=== PATIENT | female | born 1980 | race Caucasian/White ===

== ENCOUNTER → 2016-12-03 | Outpatient (CLI) | payer OTHER | LOC: FIMAGING 11:56 | PROVIDERS: ATTEND Obstetrics & Gynecology | DX: O09.522 Supervision of elderly multigravida, second trimester (principal); O99.212 Obesity complicating pregnancy, second trimester; Z68.34 Body mass index [BMI] 34.0-34.9, adult; E03.9 Hypothyroidism, unspecified; Z3A.25 25 weeks gestation of pregnancy ==

== ENCOUNTER 2016-12-21 12:05 | Emergency (ER) | payer OTHER, BC ==
[2016-12-21] MEDS ORDERED: NS 1,000 ML IV ONE (13:21)
--- NOTE | 2016-12-21 13:23 | EDPHY ---
H & P Stated Complaint: GARBER, neck pain, shoulder pain,28 weeks preg, sent from OB, from [facility] Time Seen by Provider: 12/21/16 12:31 HPI/ROS: CHIEF COMPLAINT: Chronic headache HISTORY OF PRESENT ILLNESS: The patient presents the ED with a several year history of chronic intermittent headache. The patient is recently moved to [place] from [place]. She is currently 28 weeks . She has been managed by her OBGYN doctor who prescribed her Manley approximately 1 month ago for similar symptoms. She ran out of that medication. She saw her primary OB provider today who gave the patient a prescription for Flexeril. The patient's headache did not improve she was advised to go to the emergency department. The patient states this is a typical headache for her that she has struggled with for years. For the past 28 weeks of her she has had a headache essentially every day. She denies any acute numbness or weakness. She does have associated neck pain. The patient has had a CT scan of her head in the past for evaluation of headache. REVIEW OF SYSTEMS: A comprehensive 10 point review of systems is otherwise negative aside from elements mentioned in the history of present illness. Source: Patient Exam Limitations: No limitations - Personal History LMP (Females 10-55): Current Tetanus/Diphtheria Vaccine: Yes Current Tetanus Diphtheria and Acellular Pertussis (TDAP): Yes - Medical/Surgical History Hx Asthma: No Hx Chronic Respiratory Disease: No Hx Diabetes: No Hx Cardiac Disease: No Hx Renal Disease: No Hx Cirrhosis: No Hx Alcoholism: No Hx HIV/AIDS: No Hx Splenectomy or Spleen Trauma: No Other PMH: pmh: hypothyroid, Hx GARBER, back pain migraine. psh: eye, dental - Social History Smoking Status: Never smoked - Physical Exam Exam: General Appearance: Alert, no distress Eyes: Pupils equal and round no pallor or injection ENT, Mouth: Mucous membranes moist Respiratory: There are no retractions, lungs are clear to auscultation Cardiovascular: Regular rate and rhythm Gastrointestinal: Gravid uterus Neurological: A&O, normal motor function, normal sensory exam, normal cranial nerves Skin: Warm and dry, no rashes Musculoskeletal: Neck is supple nontender Extremities: symmetrical, full range of motion Constitutional: Initial Vital Signs Temperature (C) 37 C 12/21/16 12:07 Heart Rate 117 H 12/21/16 12:07 Respiratory Rate 16 12/21/16 12:07 Blood Pressure 147/103 H 12/21/16 12:07 O2 Sat (%) 97 12/21/16 12:07 O2 Delivery Mode Room Air Allergies/Adverse Reactions: prochlorperazine [From Compazine] Allergy (Verified 12/21/16 12:11) promethazine [From Phenergan] Allergy (Verified 12/21/16 12:11) Home Medications: Medication Instructions Recorded Cyclobenzaprine 12/21/16 Synthroid 12/21/16 Medical Decision Making - Diagnostics Imaging Results: Imaging Impressions Brain MRI 12/21/16 13:27 Impression: Normal MRI of the brain without contrast. MR Venogram of the Brain History: Severe headaches in a 36-year-old female. Technique: Phase contrast GRE and coronal 2D time of flight MR venogram images of the brain were obtained without contrast. Findings: Cerebral veins and sinuses including the superior sagittal sinus, transverse sinuses, sigmoid sinuses, and internal cerebral veins appear patent without definite evidence of thrombosis. Impression: No evidence of venous sinus thrombosis. Results called and discussed with Steve Moreno M.D. on 12/21/2016 at 15:42 Head MRA 12/21/16 13:28 Impression: Normal MRI of the brain without contrast. MR Venogram of the Brain History: Severe headaches in a 36-year-old female. Technique: Phase contrast GRE and coronal 2D time of flight MR venogram images of the brain were obtained without contrast. Findings: Cerebral veins and sinuses including the superior sagittal sinus, transverse sinuses, sigmoid sinuses, and internal cerebral veins appear patent without definite evidence of thrombosis. Impression: No evidence of venous sinus thrombosis. Results called and discussed with Steve Moreno M.D. on 12/21/2016 at 15:42 ED Course/Re-evaluation: The patient presents to the ED with a chronic intermittent headache. The patient has had the symptoms ongoing for years. She recently moved to [place] from [place]. The patient has been managed to some degree by her OBGYN doctor who has provided her prescriptions for narcotic medications. The patient was given a prescription for Flexeril for recurrent symptoms. When that did not improve her symptoms she was referred to the ED for further evaluation. The patient is noted to be neurologically intact. She has no meningeal symptoms. The patient tells me she has had some workup of the headaches in the past and had a negative CT scan. At some point it was recommended the patient consider Botox injections for treatment of her migraines. Given the patient's current status, an MRI of the brain and MR angiogram were ordered to exclude acute BEVERAGE SPECIALIST abnormality and BEVERAGE SPECIALIST thrombosis. The patient had an IV established. She received 50 mg of IV Benadryl and 4 mg of IV morphine. Consultation was made with our shoe parts caser who has arranged for the patient to be seen in the neurology clinic next Wednesday for further evaluation of her chronic headaches and current state. MRI of the brain demonstrates no evidence of a BEVERAGE SPECIALIST abnormality or venous thrombosis. The patient will be discharged home with a prescription for Manley which is the only medication she has been able to use successfully to date. She does understand the risk benefit of using this medication with this . Differential Diagnosis: Differential diagnosis considered includes intracranial hemorrhage, sagittal vein thrombosis, chronic daily headache, migraine syndrome - Data Points Medications Given: Discontinued Medications Diphenhydramine HCl (Benadryl Injection) 50 mg IVP EDNOW ONE Stop: 12/21/16 13:22 Last Admin: 12/21/16 13:34 Dose: 50 mg Sodium Chloride (Ns) 1,000 mls @ 0 mls/hr IV ONCE ONE; Wide Open PRN Reason: Protocol Stop: 12/21/16 13:22 Last Admin: 12/21/16 13:34 Dose: 1,000 mls Morphine Sulfate (Morphine) 4 mg IVP EDNOW ONE Stop: 12/21/16 14:07 Last Admin: 12/21/16 14:07 Dose: 4 mg Departure - Departure Disposition: Home, Routine, Self-Care Clinical Impression: Chronic headache Condition: Good Instructions: Acute Headache (ED) Additional Instructions: 1. You have an appointment with Dr. Black on Wednesday12/28/16 with a check-in time at 3:30pm (the appointment is at 3:45pm). Their address is [address] [place] [address], [place] [address]. You can contact them at [phone] if you need to reschedule or have any other questions. 2. Manley as needed for headache. Referrals: Jeison Black DO [Medical Doctor] - As per Instructions
--- NOTE | 2016-12-21 15:15 | ASMTCMCOM ---
CM Note CM Note Notes: Requested to assist patient with getting a follow-up appointment with a neurologist. Dr. Black is the on-call neurologist at this time and they are able to see patient this upcoming Wednesday12/28/16 at 3:30pm (check-in time). Patient states this appointment time will work and is provided address and contact information. Date Signed: 12/21/2016 03:14 PM Electronically Signed By:Audra George RN
[2016-12-21 15:28] VITALS: BP 137/90; PULSE 85; RESP 16; TEMP 98.4; O2SAT 97
[2016-12-21] MEDS ORDERED: HYDROCODONE/APAP 5/325 TAB PO ONE ×2 (16:04)
== END 2016-12-21 16:16 | disposition home or self-care (01) ==
DX: O99.89 Other specified diseases and conditions complicating pregnancy, childbirth and the puerperium (principal); R51 Headache; O99.283 Endocrine, nutritional and metabolic diseases complicating pregnancy, third trimester; E86.9 Volume depletion, unspecified; Z3A.28 28 weeks gestation of pregnancy
CPT/HCPCS: 96374; J1200

== ENCOUNTER → 2016-12-31 | Outpatient (CLI) | payer OTHER, BC | LOC: FIMAGING 14:29 | PROVIDERS: ATTEND Obstetrics & Gynecology | DX: O09.523 Supervision of elderly multigravida, third trimester (principal); E03.9 Hypothyroidism, unspecified; G44.209 Tension-type headache, unspecified, not intractable; Z3A.29 29 weeks gestation of pregnancy; R03.0 Elevated blood-pressure reading, without diagnosis of hypertension ==

== ENCOUNTER 2017-02-02 15:40 | Observation (INO) | payer OTHER ==
[2017-02-02 16:23] LABS: % IMMATURE GRANULYOCYTES 0.6 % (0.0-1.1); ABSOLUTE IMMATURE GRANULOCYTES 0.08 10^3/uL (0.00-0.10); ADD DIFF? NO; ADD MORPH? NO; ADD SCAN? NO; ATYPICAL LYMPHOCYTE FLAG 0 (0-99); FRAGMENT RBC FLAG 0 (0-99); HEMATOCRIT 34.6 % (38.0-47.0); HEMOGLOBIN 11.6 g/dL (12.6-16.3); LEFT SHIFT FLG 0 (0-99); LIPEMIA HEMOLYSIS FLAG 80 (0-99); MEAN CELL HEMOGLOBIN 26.2 pg (27.9-34.1); MEAN CELL HEMOGLOBIN CONCENTR. 33.5 g/dL (32.4-36.7); MEAN CELL VOLUME 78.3 fL (81.5-99.8); MEAN PLATELET VOLUME 9.9 fL (8.7-11.7); PLATELET CLUMPS FLAG 0 (0-99); PLATELET COUNT 379 10^3/uL (150-400); RED BLOOD CELL COUNT 4.42 10^6/uL (4.18-5.33); RED CELL DISTRIBUTION WIDTH 15.5 % (11.5-15.2)
[2017-02-02 16:36] LABS: ALANINE AMINOTRANSFERASE 24 IU/L (9-52); ASPARTATE AMINOTRANSFERASE 17 IU/L (14-46); BILIRUBIN,TOTAL 0.2 mg/dL (0.1-1.4); BILIRUBIN-UNCONJUGATED 0.2 mg/dL (0.0-1.1); CREATININE 0.6 mg/dL (0.6-1.0); GLOMERULAR FILTRATION RATE > 60; LACTATE DEHYDROGENASE 431 IU/L (313-618); URIC ACID 4.5 mg/dL (2.5-6.8)
[2017-02-02] MEDS ORDERED: HYDROCODONE/APAP 5/325 TAB PO ONE (17:15)
[2017-02-02] MEDS ORDERED: HYDROCODONE/APAP 5/325 TAB PO PRN (20:33)
[2017-02-02] MEDS: CYCLOBENZAPRINE 10 MG TAB PO PRN (21:18)
--- NOTE | 2017-02-02 21:38 | OBPROG ---
Labor Progress Note Assessment/Plan: Assessment: Plan: Subjective/Intrapartum Course: 02/02/17 21:34 patient still complaining of a migraine. headache feels typical of her usual migraines. has a long history of headaches and migraines primarily due to neck pain. pain is worsened by stress. missed appointment with neurologist. has an appointment with PT next week. has been being monitored with 2 x a week NST and weekly PIH labs. having contractions but palpate very mildly. denies nausea and vomiting. long discussion with patient about management options. patient lives 45 minutes away. blood pressures are stable. PIH labs are stable. and headaches are her typical headache. will just stay over night for observation. Objective: 02/02/17 16:10 02/02/17 16:10 Uric Acid 4.5 mg/dL (2.5-6.8) 02/02/17 16:10 Total Bilirubin 0.2 mg/dL (0.1-1.4) 02/02/17 16:10 Conjugated Bilirubin 0.0 mg/dL (0.0-0.5) 02/02/17 16:10 Unconjugated Bilirubin 0.2 mg/dL (0.0-1.1) 02/02/17 16:10 AST 17 IU/L (14-46) 02/02/17 16:10 ALT 24 IU/L (9-52) 02/02/17 16:10 Lactate Dehydrogenase 431 IU/L (313-618) 02/02/17 16:10 - SVE Dilation (cm): 1 Effacement (%): 0 Station: -3 Membranes: Intact - FHR Assessment Pan FHR Pattern Variability: Moderate FHR Category: 1 - Physical Exam General Appearance: WD/WN, alert, no apparent distress Neck: non-tender, full range of motion Respiratory: chest non-tender, lungs clear, normal breath sounds Cardiac/Chest: normal peripheral pulses, regular rate, rhythm Abdomen: normal bowel sounds, non-tender, other (gravid) Extremities: normal range of motion, non-tender, normal inspection, normal capillary refill Skin: normal color, warm/dry Neuro/Psych: no motor/sensory deficits, alert, normal mood/affect, oriented x 3 Oxytocin Orders Assessment - Pre-Induction/Augmentation Assessment Gestational Age: 34 week(s) and 2 day(s)
--- NOTE | 2017-02-03 01:35 | OBPROG ---
Labor Progress Note Assessment/Plan: Assessment: Plan: Subjective/Intrapartum Course: 02/02/17 21:34 patient still complaining of a migraine. headache feels typical of her usual migraines. has a long history of headaches and migraines primarily due to neck pain. pain is worsened by stress. missed appointment with neurologist. has an appointment with PT next week. has been being monitored with 2 x a week NST and weekly PIH labs. having contractions but palpate very mildly. denies nausea and vomiting. long discussion with patient about management options. patient lives 45 minutes away. blood pressures are stable. PIH labs are stable. and headaches are her typical headache. will just stay over night for observation. 02/03/17 01:23 patient requested additional norco for headache pain. 2 given. patient resting. BP stable. urine p to c ratio .37 cm. feels contractions are much further apart and milder. 02/03/17 01:35 Objective: 02/02/17 16:10 02/02/17 16:10 Uric Acid 4.5 mg/dL (2.5-6.8) 02/02/17 16:10 Total Bilirubin 0.2 mg/dL (0.1-1.4) 02/02/17 16:10 Conjugated Bilirubin 0.0 mg/dL (0.0-0.5) 02/02/17 16:10 Unconjugated Bilirubin 0.2 mg/dL (0.0-1.1) 02/02/17 16:10 AST 17 IU/L (14-46) 02/02/17 16:10 ALT 24 IU/L (9-52) 02/02/17 16:10 Lactate Dehydrogenase 431 IU/L (313-618) 02/02/17 16:10 - SVE Membranes: Intact - AP Antepartum Course: 02/03/17 01:[address] [facility] at 23 weeks from [place]. long history of chronic neck pain and migraines which "only resolve with norco". missed appointment with neurology. evaluated in ER - neg MRI/MRA. elevated blood pressures at 30 weeks - being monitored with 2 x week NST and weekly labs. being followed by [facility]fm Oxytocin Orders Assessment - Pre-Induction/Augmentation Assessment Gestational Age: 34 week(s) and 2 day(s)
--- NOTE | 2017-02-03 04:04 | GHP ---
[f rep st] PREOP HISTORY AND PHYSICAL DATE OF ADMISSION: 02/02/2017 ADMISSION DIAGNOSIS: Intrauterine at 34- weeks gestation with mild preeclampsia, migraine headache consistent with chronic migraines. HISTORY OF PRESENT ILLNESS: Patient is a 36-year-old, 3, para 1-0-1-1 who is 34- w eeks gestation. She is dated by a last menstrual period of 06/06/2016, consistent with a 7 week ultr asound. Patient initiated care in [place] and transferred to [facility] at 23 weeks gestation. The patient's has been complicated by chronic headaches. She has a longs tanding history of headaches, migraines, and neck pain secondary primarily secondary to neck issues. She was evaluated in the emergency room during this and had an MRI and an MRI but missed h er appointment with the neurologist. Patient began having elevated blood pressures at 30 weeks gesta tion. She has been followed with weekly labs and 2 times a week nonstress tests. The patient called the office today complaining of a progressively worsening headache which feels consistent with a rory david. She had a very stressful day yesterday and did not sleep well, which is often a trigger for h er headaches. She came in and evaluated and her blood pressures were 130s over 90s. Patient was tea rful as the headache was persistent and discussion was had for the patient to stay overnight for obse rvation and evaluation. Patient states the headache is very consistent with what she normally experi ences from her musculoskeletal neck headaches. She was given Barry, which did improve her headache a nd a dose of Flexeril and several hours later requested an additional dose of Barry. PH labs were ob tained. She did have an elevated P to C ratio of 0.37. status has been reassuring. She was h aving contractions that were barely palpable by patient and by the nurse and we did examine her cervi x and she was 1 cm dilated long and -2 station. Patient is being observed overnight and will be re-e valuated in the morning for a long-term followup plan. PAST MEDICAL HISTORY: Significant for chronic migraines, hypothyroidism. Severe neck injury. MEDICATIONS: Synthroid, vitamins and Barry as needed. PAST SURGICAL HISTORY: [place] tooth extraction, eye surgery. ALLERGIES: Compazine and Phenergan which both cause muscle tension. SOCIAL HISTORY: Patient is . 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 She denies tob acco, alcohol, or drug use. FAMILY MEDICAL HISTORY: Noncontributory. DISBURSING AGENT HISTORY: Menarche age 14. Periods every 26-27 days, lasting 4 days. She is a 3, par a 1-0-1-1. In 1999, she had a spontaneous vaginal delivery at 37-5/7 weeks of a 5 pound 14 ounce mal e infant, that was in [place]. In 12/2015 she had a spontaneous . Current has been uncomplicated with exception of the chronic headaches and the mild preeclampsia. Patient denies any history of abnormal Pap smears or sexually transmitted diseases. PHYSICAL EXAMINATION: VITAL SIGNS: Stable. The 130-140 over 80-90. Her most recent blood pressure was 102/60. GENERAL APPEARANCE: Alert and oriented x3, but tearful. MUSCULOSKELETAL: Grossly int act. NEUROLOGIC: Grossly intact. NECK: Mobile and supple. HEART: Rate is regular. LUNGS: Martha r to auscultation bilaterally. ABDOMEN: Gravid, nondistended, nontender. EXTREMITIES: Reveal no c penitentiary tenderness or edema. CERVICAL: She was 1 cm dilated, long, -2 station. feels to be vert ex. heart tracing is appropriate for gestational age and she is having contractions that palpa te mild. LABS: Blood type B positive, antibody screen negative. Rubella immune. GBS is unknown. H BsAg negative. HIV negative. Patient's PIH labs: Her hemoglobin is 11.6, hematocrit is 34.6, plate lets are 379. Creatinine is 0.6. Her uric acid is 4.5. Her AST is 17. Her ALT is 24. Her random total protein is 16 and her random creatinine is 43, which makes the P to C ratio of 0.37. ASSESSMENT/PLAN: A 36-year-old 3, para 1-0-1-1 at 34- weeks gestation for mild pre eclampsia with a migraine. Will start 24-hour urine protein just to confirm the P to C ratio and kelvin ssess patient in the morning and if her blood pressures continue to be stable she will be discharged to home. /[id number]/MODL
[2017-02-03] MEDS: CYCLOBENZAPRINE 10 MG TAB PO PRN (06:26)
[2017-02-03 07:22] LABS: % IMMATURE GRANULYOCYTES 0.6 % (0.0-1.1); ABSOLUTE IMMATURE GRANULOCYTES 0.08 10^3/uL (0.00-0.10); ADD DIFF? NO; ADD MORPH? NO; ADD SCAN? NO; ATYPICAL LYMPHOCYTE FLAG 0 (0-99); FRAGMENT RBC FLAG 0 (0-99); HEMOGLOBIN 11.2 g/dL (12.6-16.3); LEFT SHIFT FLG 0 (0-99); LIPEMIA HEMOLYSIS FLAG 80 (0-99); MEAN CELL HEMOGLOBIN CONCENTR. 32.9 g/dL (32.4-36.7); MEAN CELL VOLUME 79.1 fL (81.5-99.8); MEAN PLATELET VOLUME 9.9 fL (8.7-11.7); PLATELET CLUMPS FLAG 0 (0-99); PLATELET COUNT 335 10^3/uL (150-400); RED CELL DISTRIBUTION WIDTH 15.8 % (11.5-15.2)
[2017-02-03 07:42] LABS: ALANINE AMINOTRANSFERASE 22 IU/L (9-52); ASPARTATE AMINOTRANSFERASE 16 IU/L (14-46); BILIRUBIN,TOTAL 0.3 mg/dL (0.1-1.4); BILIRUBIN-UNCONJUGATED 0.3 mg/dL (0.0-1.1); CREATININE 0.5 mg/dL (0.6-1.0); GLOMERULAR FILTRATION RATE > 60; LACTATE DEHYDROGENASE 406 IU/L (313-618); URIC ACID 4.5 mg/dL (2.5-6.8)
--- NOTE | 2017-02-03 09:32 | OBPROG ---
Labor Progress Note Assessment/Plan: Assessment: HD 2 at 34 wks gest with severe GARBER, improved blood pressure and normal labs, slightly elevated proteinuria Plan: repeat labs stable, and B/P normal through noc. Suspect GARBER c/w chronic issue and not a/w severe preeclampsia. will d/c home 02/03/17 09:28 Subjective/Intrapartum Course: 02/02/17 21:34 patient still complaining of a migraine. headache feels typical of her usual migraines. has a long history of headaches and migraines primarily due to neck pain. pain is worsened by stress. missed appointment with neurologist. has an appointment with PT next week. has been being monitored with 2 x a week NST and weekly PIH labs. having contractions but palpate very mildly. denies nausea and vomiting. long discussion with patient about management options. patient lives 45 minutes away. blood pressures are stable. PIH labs are stable. and headaches are her typical headache. will just stay over night for observation. 02/03/17 01:23 patient requested additional norco for headache pain. 2 given. patient resting. BP stable. urine p to c ratio .37 cm. feels contractions are much further apart and milder. 02/03/17 01:35 02/03/17 09:30 pt reports GARBER through noc but felt flexoril helped a bit this am. disc no change and normal labs. B/P normal through noc and baby Cat I tracing - no sign of increasing labor ctxns. I rec pt f/u with massage/acupucture/ etc and rest/hydrate/stool softeners. use flexoril and norco sparingly. f/U next week with MFM and our office or sooner if increased symptoms Objective: 02/03/17 07:10 02/03/17 07:10 Uric Acid 4.5 mg/dL (2.5-6.8) 02/03/17 07:10 Total Bilirubin 0.3 mg/dL (0.1-1.4) 02/03/17 07:10 Conjugated Bilirubin 0.0 mg/dL (0.0-0.5) 02/03/17 07:10 Unconjugated Bilirubin 0.3 mg/dL (0.0-1.1) 02/03/17 07:10 AST 16 IU/L (14-46) 02/03/17 07:10 ALT 22 IU/L (9-52) 02/03/17 07:10 Lactate Dehydrogenase 406 IU/L (313-618) 02/03/17 07:10 - SVE Membranes: Intact - FHR Assessment Pan FHR (bpm): 140 FHR Pattern Variability: Moderate FHR Category: 1 - AP Antepartum Course: 02/03/17 01:25 transfer of care to [facility] at 23 weeks from [place]. long history of chronic neck pain and migraines which "only resolve with norco". missed appointment with neurology. evaluated in ER - neg MRI/MRA. elevated blood pressures at 30 weeks - being monitored with 2 x week NST and weekly labs. being followed by [facility]fm Oxytocin Orders Assessment - Pre-Induction/Augmentation Assessment Gestational Age: 34 week(s) and 2 day(s) ICD10 Worksheet Patient Problems: Problems Problem Status Onset Headache Acute Preeclampsia Acute - ICD10 Problem Qualifiers (1) Headache Qualifiers: Headache type: tension-type Headache chronicity pattern: chronic headache
== END 2017-02-03 10:30 | disposition home or self-care (01) ==
LOC: FLD 15:40
PROVIDERS: ADMIT Obstetrics & Gynecology; ATTEND Obstetrics & Gynecology
DX: O13.3 Gestational [pregnancy-induced] hypertension without significant proteinuria, third trimester (principal); G43.909 Migraine, unspecified, not intractable, without status migrainosus; O99.353 Diseases of the nervous system complicating pregnancy, third trimester; O99.283 Endocrine, nutritional and metabolic diseases complicating pregnancy, third trimester; E03.9 Hypothyroidism, unspecified; O09.523 Supervision of elderly multigravida, third trimester; Z3A.34 34 weeks gestation of pregnancy
CPT/HCPCS: G0378 ×2

== ENCOUNTER 2017-02-05 13:35 | Observation (INO) | payer OTHER ==
[2017-02-05] MEDS ORDERED: TERBUTALINE SULFATE 1 MG/ML VIAL ONE (16:45)
[2017-02-05] MEDS: TERBUTALINE SULFATE 1 MG/ML VIAL SC PRN ×2 (16:52→17:14)
[2017-02-05 17:16] VITALS: PULSE 126
== END 2017-02-05 18:30 | disposition home or self-care (01) ==
LOC: FLD 13:35
PROVIDERS: ADMIT Obstetrics & Gynecology; ATTEND Obstetrics & Gynecology
DX: O60.03 Preterm labor without delivery, third trimester (principal); Z3A.34 34 weeks gestation of pregnancy
CPT/HCPCS: 59025; G0378; J3105

== ENCOUNTER 2017-02-09 13:34 | Observation (INO) | payer BC, OTHER ==
[2017-02-09] MEDS ORDERED: LR 1,000 ML IV SCH (15:30)
[2017-02-09 15:31] LABS: % IMMATURE GRANULYOCYTES 0.5 % (0.0-1.1); ABSOLUTE IMMATURE GRANULOCYTES 0.06 10^3/uL (0.00-0.10); ADD DIFF? NO; ADD MORPH? NO; ADD SCAN? YES; ATYPICAL LYMPHOCYTE FLAG 0 (0-99); FRAGMENT RBC FLAG 20 (0-99); HEMATOCRIT 33.7 % (38.0-47.0); HEMOGLOBIN 11.3 g/dL (12.6-16.3); LEFT SHIFT FLG 10 (0-99); LIPEMIA HEMOLYSIS FLAG 80 (0-99); MEAN CELL HEMOGLOBIN 26.2 pg (27.9-34.1); MEAN CELL HEMOGLOBIN CONCENTR. 33.5 g/dL (32.4-36.7); MEAN PLATELET VOLUME 10.8 fL (8.7-11.7); PLATELET COUNT 314 10^3/uL (150-400); RED BLOOD CELL COUNT 4.32 10^6/uL (4.18-5.33); RED CELL DISTRIBUTION WIDTH 15.5 % (11.5-15.2)
[2017-02-09 15:32] LABS: PLATELET CLUMPS FLAG 300 (0-99)
[2017-02-09 15:46] LABS: ALANINE AMINOTRANSFERASE 26 IU/L (9-52); ASPARTATE AMINOTRANSFERASE 30 IU/L (14-46); BILIRUBIN,TOTAL 0.5 mg/dL (0.1-1.4); BILIRUBIN-CONJUGATED 0.4 mg/dL (0.0-0.5); BILIRUBIN-UNCONJUGATED 0.1 mg/dL (0.0-1.1); CREATININE 0.5 mg/dL (0.6-1.0); GLOMERULAR FILTRATION RATE > 60; LACTATE DEHYDROGENASE 664 IU/L (313-618); URIC ACID 4.5 mg/dL (2.5-6.8)
[2017-02-09 16:00] LABS: SCAN NEGATIVE
[2017-02-09] MEDS ORDERED: TERBUTALINE SULFATE 1 MG/ML VIAL SC ONE (18:39)
--- NOTE | 2017-02-09 20:11 | GHP ---
[f rep st] PREOP HISTORY AND PHYSICAL DATE OF ADMISSION: 02/09/2017 DIAGNOSIS: Intrauterine at 35 and 2/7 weeks' gestation, with contractions. HISTORY OF PRESENT ILLNESS: Carisa is a 36-year-old 3, para 1-0-1-1, with a last menstrual period of 06/06/2016, and EDC of 03/14/2017, which was set by a first trimester ultrasound. She has been followed closely in this with history of chronic headaches and chronic migraines, has had episodes of elevated blood pressures and 1 episode of elevated proteinuria, possible preeclampsi a, also hypothyroidism, and advanced maternal age. She was evaluated by Dr. Nuha Garcia [facility], today for her scheduled followup growth ultrasound, and was found to have be having painful contractions, c oncern for labor. She was sent to Labor and Delivery for evaluation. Currently she reports a mild headache. No scotoma or right upper quadrant pain, or any signs or symptoms of preeclampsia. She has had lower back pain, pelvic pain, and increased contractions, increasing over the course of the day, having episodes of contractions every 2 to 3 minutes. On evaluation, heart tones are 140s, reactive, moderate variability, category 1, she is katy every 2 to 3 minutes. Cervical exam is closed, long, 50% and soft and intact, and she is being observed for labor. The nacho ent has had IV fluids, and we will try 1 dose of subcutaneous terbutaline, to see if we can stop pret erm contractions. There is no evidence of true labor with cervical change at this time. The patient's course has also been complicated by elevated blood pressures. She has had blood pressures of 132/90, and another 131/91; then, she has had a very normal blood pressure at 115/73, 117/77, and 119/66. She has been followed with weekly PIH labs; these were drawn today and they were normal, an d no other evidence of preeclampsia. PAST OBSTETRICAL HISTORY: In May of 1999, she had a spontaneous vaginal delivery of a viable male, 5 pounds 14 ounces, no complications, and in 12/2015, she had an SAB. She has no significant past m edical history, except hypothyroidism. She is on Synthroid 350 mcg daily, and has been followed for growth ultrasounds. SURGICAL HISTORY: Eye surgery, wisdom teeth extraction; nothing significant. ALLERGIES: She is allergic to Compazine, it gives her muscle tension, and Phenergan, as well. LABS: She is A positive, antibody negative, RPR nonreactive, rubella immune, hepatitis negative, HIV negative. 1-hour GTT was normal. PH labs have been followed and were normal. OBJECTIVE: Vital signs are as above. Report of ultrasound with Dr. Garcia showed good growth. Baby is cephalic. Estimated weight of 2653 g, which is 49th percentile. MACEY was 9.9, with a 4.2 cm max vertical pocket. PIH labs were normal. White blood cell count is 12.34, her hemoglobin i s 11.3, hematocrit 33.7, platelets of 314. BUN 5, creatinine 0.5, uric acid 4.5, AST 30, ALT 26, LDH 664. ASSESSMENT AND PLAN: A 35-year-old 3, para 1-0-1-1 at 35 and 2/7 weeks' gestation, with pret erm contractions. No evidence of cervical change or labor; also followed for possible mild p reeclampsia. No evidence of worsening preeclampsia today. We will give her a dose of subcutaneous t erbutaline. Continue IV fluid hydration and observe her contractions closely. /[id number]/MODL
[2017-02-09] MEDS ORDERED: HYDROCODONE/APAP 5/325 TAB PO PRN ×2 (21:10→23:01)
== END 2017-02-10 00:13 | disposition home or self-care (01) ==
LOC: FIMAGING 13:34 → FLD 14:35
PROVIDERS: ADMIT Obstetrics & Gynecology; ATTEND Obstetrics & Gynecology
DX: O60.03 Preterm labor without delivery, third trimester (principal); O14.03 Mild to moderate pre-eclampsia, third trimester; O99.283 Endocrine, nutritional and metabolic diseases complicating pregnancy, third trimester; O99.353 Diseases of the nervous system complicating pregnancy, third trimester; G43.909 Migraine, unspecified, not intractable, without status migrainosus; O09.523 Supervision of elderly multigravida, third trimester; Z3A.35 35 weeks gestation of pregnancy; E03.9 Hypothyroidism, unspecified
CPT/HCPCS: 76816; G0378; J3105

== ENCOUNTER 2017-02-20 19:27 | Observation (INO) | payer OTHER, BC ==
[2017-02-20 19:33] VITALS: RESP 18; TEMP 98.6
--- NOTE | 2017-02-20 19:49 | EDPHY ---
H & P Stated Complaint: fell down starir R ankle pain 37 wks Time Seen by Provider: 02/20/17 19:40 HPI/ROS: CHIEF COMPLAINT: Right ankle pain HISTORY OF PRESENT ILLNESS: 36-year-old female, , currently 37 weeks , arrives via private vehicle complaining of acute right lateral ankle pain after she was walking down 45 stairs, slipped and rolled her ankle. No abdominal trauma. No head injury or trauma. No back pain or trauma. No chest pain or trauma. No straddle injury. No vaginal bleeding or discharge. Able to bear weight albeit with pain. No proximal tibia or fibula or fibular head pain. Primary OBGYN: Dr. Erika Maya REVIEW OF SYSTEMS: A ten point review of systems was performed and is negative with the exception of the items mentioned in the HPI PAST MEDICAL/SURGICAL HISTORY: currently 37 weeks SOCIAL HISTORY: denies alcohol use at time of incident PHYSICAL EXAM 1) GENERAL: Well-developed, well-nourished, alert and oriented. Appears to be in no acute distress. Answering questions appropriately. 2) HEAD: Normocephalic, atraumatic 3) HEENT: Pupils equal, round, reactive to light bilaterally. Negative Horners. Nasopharynx, oropharynx, clear. No deformity or angulation of nose. No septal hematoma. No rhinorrhea. No oral trauma. Ears bilaterally with normal tympanic membranes. No hemotympanum. No fluid or blood in the external auditory canal. No raccoon eyes. No Lopez sign.. 4) NECK: No cervical collar is on. Posterior cervical spine is nontender, no stepoff, no effusion. Full range of motion which does not elicit any midline cervical spine pain, no posterior midline tenderness, no step-off. 5) LUNGS: Clear to auscultation bilaterally, no wheezes, no rhonchi, no retractions. No obvious signs of trauma. No chest wall pain. No flaring, no grunting. Moving symmetrically. No crepitus. 6) HEART: [Regular rate and rhythm, 7) ABDOMEN: Gravid. No ecchymosis. No guarding, no rebound, no focal tenderness, no peritoneal signs, no signs of trauma, no ecchymosis 8) MUSCULOSKELETAL: Right lower extremity: Tender to palpation right lateral malleolus. No 5th metatarsal pain. No fibular head or knee pain or injury. Soft compartments. DP PT pulses present and brisk. Moving all extremities, no focal areas of tenderness, no obvious trauma. 9) BACK: No midline vertebral tenderness, no fluctuance, no step-off, no obvious trauma, no visual or palpable abnormality. 10) SKIN: No laceration. No abrasion DIFFERENTIAL DIAGNOSIS: In no particular include but limited to fracture, sprain, strain, compartment syndrome - Personal History LMP (Females 10-55): Current Tetanus/Diphtheria Vaccine: Unsure Current Tetanus Diphtheria and Acellular Pertussis (TDAP): Unsure - Medical/Surgical History Hx Asthma: No Hx Chronic Respiratory Disease: No Hx Diabetes: No Hx Cardiac Disease: No Hx Renal Disease: No Hx Cirrhosis: No Hx Alcoholism: No Hx HIV/AIDS: No Hx Splenectomy or Spleen Trauma: No Other PMH: pmh: hypothyroid, Hx GARBER, back pain migraine. psh: eye, dental - Social History Smoking Status: Never smoked Constitutional: Initial Vital Signs Temperature (C) 37 C 02/20/17 19:30 Heart Rate 88 02/20/17 19:30 Respiratory Rate 18 02/20/17 19:30 Blood Pressure 147/89 H 02/20/17 19:30 O2 Sat (%) 100 02/20/17 19:30 O2 Delivery Mode Room Air Allergies/Adverse Reactions: prochlorperazine [From Compazine] Allergy (Verified 02/05/17 13:54) promethazine [From Phenergan] Allergy (Verified 02/05/17 13:54) Home Medications: Medication Instructions Recorded Synthroid 250 mcg PO DAILY 12/21/16 Cyclobenzaprine [Flexeril 10 MG 10 mg PO TID PRN #20 tab 02/03/17 (*)] Hydrocodone/APAP 5/325 [[place] 2 tab PO Q4HRS PRN 1 Days #16 tab 02/03/17 5/325 (*)] Vit27&Calcium/Iron/FA 1 each PO DAILY 02/05/17 [ Rx 1 Tablet (RX)] Medical Decision Making - Diagnostics Imaging Results: Imaging Impressions Ankle X-Ray 02/20/17 19:45 Impression: Negative for fracture. Images reviewed myself Procedures: Procedure: Crutches indications for crutch use discussed with patient. Patient fitted for crutches by ER staff. Observed ambulating with crutches. I think the patient has the capacity to safely use crutches. Usual and customary crutch walking precautions provided Procedure: Splint A Ander boot splint was applied by ER missile tracking technician. After application of the splint I returned and re-examined the patient. The splint was adequately immobilizing the joint and distal to the splint the patient's circulation and sensation were intact. Patient shows no signs of compartment syndrome. Was given orthopedic precautions. ED Course/Re-evaluation: Care of patient under supervision of secondary supervising physician Dr Juarez . Will obtain x-ray of the right ankle and patient will then be transferred to the Labor and delivery for monitoring. 8:36 p.m.: Re-evaluation. Discussed her negative imaging results. Discussed limitations of imaging the diagnosis of acute ankle pain. Recommend orthopedic follow-up. She has been placed in [place] boot, crutches, weight-bearing as tolerated, given orthopedic follow-up information. She will go directly from the ER to Labor and delivery for monitoring. Departure - Departure Disposition: Home, Routine, Self-Care Clinical Impression: Right ankle sprain Qualifiers: Encounter type: initial encounter Involved ligament of ankle: unspecified ligament Qualified Code(s): S93.401A - Sprain of unspecified ligament of right ankle, initial encounter Condition: Good Instructions: Ankle Sprain (ED) Additional Instructions: Return to the ER immediately if you experience discoloration, have worsening pain, numbness, tingling, or any other symptoms that concern you. If you received x-rays in the emergency department today, be advised, that ligamentous , tendon, muscular, and other non-bony injury cannot be fully ruled out. Try to keep your affected extremity elevated above the level of your chest, and keep cold packs on the affected area, for the next 48 hours. Referrals: Javier Still MD [Medical Doctor] - 2-3 days, call for appt.
[2017-02-20 20:39] VITALS: BP 131/81; PULSE 73; O2SAT 99
--- NOTE | 2017-02-20 21:30 | OBPROG ---
Labor Progress Note Assessment/Plan: Assessment:cat 1 fhr pain of an 8 irregular contractions requesting medication for pain relief denies leaking and bleeding Plan:consult dr. ness garcía on POC 4h monitoring, pain relief for leg pain after fall. Hydration to assist with irregular contractions 02/20/17 21:26 Subjective/Intrapartum Course: 02/20/17 21:24 Fell at 1820 to leg and down three flights of stairs. States pain an 8 right foot, ankle, up leg to hip. Feeling occasional contractions. Denies leaking and bleeding. states feeling movement Objective: Temp Pulse Resp BP Pulse Ox 37 C 73 18 131/81 H 99 02/20/17 19:30 02/20/17 20:37 02/20/17 20:37 02/20/17 20:37 02/20/17 20:37 - Contraction Pattern Assessment Current Contraction Pattern: Irregular - FHR Assessment Pan FHR (bpm): 135 FHR Pattern Variability: Moderate FHR Category: 1 - Physical Exam General Appearance: WD/WN, alert, no apparent distress Respiratory: chest non-tender, lungs clear, normal breath sounds Cardiac/Chest: regular rate, rhythm Abdomen: normal bowel sounds Extremities: normal range of motion, Song's sign (negative hoens sign bilaterally) DTR- Lower Extremities: Knee (L): 1+ (no clonus) Skin: normal color, warm/dry Neuro/Psych: no motor/sensory deficits, alert, normal mood/affect, oriented x 3 Oxytocin Orders Assessment - Pre-Induction/Augmentation Assessment Gestational Age: 36 week(s) and 6 day(s) ICD10 Worksheet Patient Problems: Problems Problem Status Onset Right ankle sprain Acute Headache Acute Preeclampsia Acute
[2017-02-20] MEDS: HYDROCODONE/APAP 5/325 TAB PO PRN (21:35)
--- NOTE | 2017-02-20 22:16 | GHP ---
[f rep st] HISTORY AND PHYSICAL DATE OF ADMISSION: 02/20/2017 HISTORY OF PRESENT ILLNESS: The patient is a 36-year-old, 3, para 1, with an EDC of 03/14/20 17 who comes to labor and delivery at 8:54 for monitoring after being medically cleared in the ER for a fall where she fell to her leg, on her bottom, and then down 3 stairs. She denies any abdominal t rauma. She states brownish discharge after an exam 2 days ago in the office. Denies [place] bleeding. States feeling occasional contractions. States feeling positive movement. States pain is a 9 in her right leg, which is the leg that she fell on, and 9 in her abdomen (not labor related). The patient has been routinely seen with [facility] with transfer of care at 23-4/7 weeks. MEDICAL HISTORY: Thyroid dysfunction, taking 250 mcg of levothyroxine p.o. daily, and migraine heada ches with aura. The patient has a history of depression. MAJOR ACCIDENTS: Severe neck injury. SURGICAL HISTORY: Right eye surgery and wisdom teeth extraction. SOCIAL HISTORY: She denies smoking, alcohol use, and drug use. GYNECOLOGICAL HISTORY: Thirteen years for starting menarche, 26 to 27-day interval, 4-day length. L ast menstrual period was 06/06/2016. Certain dates. test that was positive on 07/04/2016. PREVIOUS HISTORY: On 06/07/1999, 5 pounds 14 ounces, 37-5/7 weeks, 13 hours of labor vagin ally with an epidural. On 01/02/2016, SAB, 0 growth after 6 weeks. This is #3 . ALLERGIES: Patient is allergic to Compazine and Phenergan. MEDICATIONS: Synthroid and vitamin. LABS: Patient is A positive and antibody negative. RPR is nonreactive. Rubella is immune. Hepatit is is negative. HIV is negative. Trio screen is negative. Gonorrhea and chlamydia are negative. U rine culture is negative. Previously, patient was taking tramadol. She has also been taking Fiorice t and [place] to assist with headache. She has been routinely seen in [facility] for elevated blood pressure and growth, seeing the neurologist for migraine headaches, and weekly PIH labs. We will do PIH labs today. Elevated blood pressure x1; 131/78 was the second blood pressure. PHYSICAL ASSESSMENT: Patient is awake, alert, and oriented x3. Lungs are clear bilaterally. Bowel sounds are positive in all 4 quadrants. DTRs are 1+ in the left leg. Right leg was not assessed as she is wearing a soft cast. The patient states pain is an 8. We will give [place] for pain relief. Category-1 heart rate. PLAN OF CARE: Consult Dr. Minerva Grier. We will monitor continuously for 4 hours after the fall. /[id number]/MODL
[2017-02-20 22:18] LABS: % IMMATURE GRANULYOCYTES 0.9 % (0.0-1.1); ABSOLUTE IMMATURE GRANULOCYTES 0.13 10^3/uL (0.00-0.10); ADD DIFF? NO; ADD MORPH? NO; ADD SCAN? NO; ATYPICAL LYMPHOCYTE FLAG 0 (0-99); FRAGMENT RBC FLAG 0 (0-99); HEMATOCRIT 34.6 % (38.0-47.0); HEMOGLOBIN 11.4 g/dL (12.6-16.3); LEFT SHIFT FLG 0 (0-99); LIPEMIA HEMOLYSIS FLAG 80 (0-99); MEAN CELL HEMOGLOBIN 25.7 pg (27.9-34.1); MEAN CELL HEMOGLOBIN CONCENTR. 32.9 g/dL (32.4-36.7); MEAN CELL VOLUME 78.1 fL (81.5-99.8); MEAN PLATELET VOLUME 10.1 fL (8.7-11.7); PLATELET CLUMPS FLAG 0 (0-99); PLATELET COUNT 384 10^3/uL (150-400); RED BLOOD CELL COUNT 4.43 10^6/uL (4.18-5.33); RED CELL DISTRIBUTION WIDTH 15.9 % (11.5-15.2)
[2017-02-20 22:49] LABS: ALANINE AMINOTRANSFERASE 21 IU/L (9-52); ASPARTATE AMINOTRANSFERASE 19 IU/L (14-46); BILIRUBIN,TOTAL 0.3 mg/dL (0.1-1.4); BILIRUBIN-CONJUGATED 0.2 mg/dL (0.0-0.5); BILIRUBIN-UNCONJUGATED 0.1 mg/dL (0.0-1.1); CREATININE 0.6 mg/dL (0.6-1.0); GLOMERULAR FILTRATION RATE > 60; LACTATE DEHYDROGENASE 495 IU/L (313-618); URIC ACID 5.2 mg/dL (2.5-6.8)
[2017-02-21] MEDS: HYDROCODONE/APAP 5/325 TAB PO PRN (01:03)
--- NOTE | 2017-02-21 01:05 | OBPROG ---
Labor Progress Note Assessment/Plan: Assessment:cat 1 fhr pain 4-5 irregular contractions/ denies pain from the contractions requesting medication for pain relief denies leaking and bleeding feeling positive movement Plan:Discharge to home with instructions for fu on wednesday in the office return sooner for regular contractions bleeding and leaking 02/20/17 21:26 02/21/17 01:05 Subjective/Intrapartum Course: 02/20/17 21:24 Fell at 1820 to leg and down three flights of stairs. States pain an 8 right foot, ankle, up leg to hip. Feeling occasional contractions. Denies leaking and bleeding. states feeling movement 02/21/17 01:01 denies feeling contractions. Continues to feel pain in the right leg. Will medicate again before discharge to home with norco 2 tabs. Objective: 02/20/17 22:10 02/20/17 22:10 Uric Acid 5.2 mg/dL (2.5-6.8) 02/20/17 22:10 Total Bilirubin 0.3 mg/dL (0.1-1.4) 02/20/17 22:10 Conjugated Bilirubin 0.2 mg/dL (0.0-0.5) 02/20/17 22:10 Unconjugated Bilirubin 0.1 mg/dL (0.0-1.1) 02/20/17 22:10 AST 19 IU/L (14-46) 02/20/17 22:10 ALT 21 IU/L (9-52) 02/20/17 22:10 Lactate Dehydrogenase 495 IU/L (313-618) 02/20/17 22:10 Temp Pulse Resp BP Pulse Ox 37 C 73 18 131/81 H 99 02/20/17 19:30 02/20/17 20:37 02/20/17 20:37 02/20/17 20:37 02/20/17 20:37 - Contraction Pattern Assessment Current Contraction Pattern: Irregular Oxytocin Orders Assessment - Pre-Induction/Augmentation Assessment Gestational Age: 36 week(s) and 6 day(s) ICD10 Worksheet Patient Problems: Problems Problem Status Onset Right ankle sprain Acute Headache Acute Preeclampsia Acute
== END 2017-02-21 01:18 | disposition home or self-care (01) ==
LOC: FLD 20:50
PROVIDERS: ADMIT Advanced Practice Midwife; ATTEND Advanced Practice Midwife
DX: O9A.213 Injury, poisoning and certain other consequences of external causes complicating pregnancy, third trimester (principal); S93.401A Sprain of unspecified ligament of right ankle, initial encounter; W18.49XA Other slipping, tripping and stumbling without falling, initial encounter; Y99.8 Other external cause status; Y93.01 Activity, walking, marching and hiking; Z3A.37 37 weeks gestation of pregnancy; E07.9 Disorder of thyroid, unspecified
CPT/HCPCS: 73610; G0378; L4386

== ENCOUNTER 2017-02-23 06:00 | Inpatient (IN) | payer OTHER, BC ==
[2017-02-23] MEDS ORDERED: EPSOM SALT 454 GM TP PRN (07:05)
[2017-02-23] MEDS ORDERED: TERBUTALINE SULFATE 1 MG/ML VIAL IV PRN (07:05)
[2017-02-23] MEDS ORDERED: OXYTOCIN 20 UNIT in LR 1,000 ML IV PRN (07:05)
[2017-02-23] MEDS ORDERED: LR 1,000 ML IV PRN (07:05)
[2017-02-23] MEDS ORDERED: OLIVE OIL 118 ML BTL MISC PRN (07:05)
[2017-02-23] MEDS ORDERED: OXYTOCIN 30 UNIT in NS 500 ML IV SCH (07:15)
--- NOTE | 2017-02-23 07:53 | OBPROG ---
Labor Progress Note Assessment/Plan: Assessment: cat 1 fhr denies regular contractions feeling irregular cramping elevated bp pih labs exam 3-/-2 Plan:pitocin per protocol 02/23/17 07:51 Subjective/Intrapartum Course: 02/23/17 07:50 Denies pain at this time. Doing well . Continues to have pain with her right leg after a recent fall - SVE Dilation (cm): 3, 4 Effacement (%): 50 Station: -2 Membranes: Intact - Contraction Pattern Assessment Current Contraction Pattern: Irregular - FHR Assessment Pan FHR (bpm): 135 FHR Pattern Variability: Moderate FHR Category: 1 - Physical Exam General Appearance: WD/WN, alert, no apparent distress Respiratory: chest non-tender, lungs clear, normal breath sounds Cardiac/Chest: regular rate, rhythm Abdomen: normal bowel sounds Extremities: normal range of motion, Song's sign (negative bilaterally) DTR- Lower Extremities: Knee (L): 1+ (no clonus) Skin: normal color, warm/dry Neuro/Psych: no motor/sensory deficits, alert, normal mood/affect ICD10 Worksheet Patient Problems: Problems Problem Status Onset Right ankle sprain Acute Preeclampsia Acute
[2017-02-23 08:12] LABS: % IMMATURE GRANULYOCYTES 0.8 % (0.0-1.1); ABSOLUTE IMMATURE GRANULOCYTES 0.12 10^3/uL (0.00-0.10); ADD DIFF? NO; ADD MORPH? NO; ADD SCAN? NO; ATYPICAL LYMPHOCYTE FLAG 0 (0-99); FRAGMENT RBC FLAG 0 (0-99); HEMATOCRIT 31.5 % (38.0-47.0); HEMOGLOBIN 10.5 g/dL (12.6-16.3); LEFT SHIFT FLG 0 (0-99); LIPEMIA HEMOLYSIS FLAG 80 (0-99); MEAN CELL HEMOGLOBIN 25.7 pg (27.9-34.1); MEAN CELL HEMOGLOBIN CONCENTR. 33.3 g/dL (32.4-36.7); MEAN CELL VOLUME 77.2 fL (81.5-99.8); MEAN PLATELET VOLUME 10.7 fL (8.7-11.7); PLATELET CLUMPS FLAG 0 (0-99); PLATELET COUNT 350 10^3/uL (150-400); RED BLOOD CELL COUNT 4.08 10^6/uL (4.18-5.33); RED CELL DISTRIBUTION WIDTH 15.9 % (11.5-15.2)
[2017-02-23 08:38] LABS: ALANINE AMINOTRANSFERASE 26 IU/L (9-52); ASPARTATE AMINOTRANSFERASE 21 IU/L (14-46); BILIRUBIN,TOTAL 0.2 mg/dL (0.1-1.4); BILIRUBIN-CONJUGATED 0.1 mg/dL (0.0-0.5); BILIRUBIN-UNCONJUGATED 0.1 mg/dL (0.0-1.1); CREATININE 0.5 mg/dL (0.6-1.0); GLOMERULAR FILTRATION RATE > 60; LACTATE DEHYDROGENASE 484 IU/L (313-618); URIC ACID 5.1 mg/dL (2.5-6.8)
[2017-02-23] MEDS ORDERED: LIDOCAINE 1% 300 MG/30 ML SDV ONE (09:07)
[2017-02-23] MEDS ORDERED: AMMONIA AROMATIC 1 EACH AMP IH ONE (09:08)
[2017-02-23] MEDS ORDERED: MISOPROSTOL 200 MCG TAB ONE (09:08)
[2017-02-23] MEDS ORDERED: OXYTOCIN 10 UNIT/ML VIAL ONE (09:08)
[2017-02-23] MEDS ORDERED: TERBUTALINE SULFATE 1 MG/ML VIAL ONE (09:08)
[2017-02-23] MEDS ORDERED: OLIVE OIL 118 ML BTL ONE (09:08)
[2017-02-23] MEDS ORDERED: fentaNYL 100 MCG/2 ML INJ ONE ×2 (13:35→15:46)
[2017-02-23] MEDS ORDERED: PHENYLEPHRINE HCL 100 MCG/ML SYR ONE (13:35)
[2017-02-23] MEDS ORDERED: BUPIVACAINE 0.25% 30 ML SDV ONE (13:35)
[2017-02-23] MEDS ORDERED: fentaNYL 2MCG/ML/BUP 0.1% RTU 100 ML BAG EP ONE (13:35)
--- NOTE | 2017-02-23 14:45 | OBPROG ---
Labor Progress Note Assessment/Plan: Assessment: IUP at 37+ wks, mild preeclampsia, induction narc use for HAs and sprained ankle Plan: SHARON and unable to monitor baby,m FSE and IUPC placed 02/23/17 14:42 Subjective/Intrapartum Course: 02/23/17 07:50 Denies pain at this time. Doing well . Continues to have pain with her right leg after a recent fall 02/23/17 14:44 Pt more comf with SHARON Objective: 02/23/17 07:50 02/23/17 07:50 Patient ABO/Rh A POSITIVE 02/23/17 07:50 Uric Acid 5.1 mg/dL (2.5-6.8) 02/23/17 07:50 Total Bilirubin 0.2 mg/dL (0.1-1.4) 02/23/17 07:50 Conjugated Bilirubin 0.1 mg/dL (0.0-0.5) 02/23/17 07:50 Unconjugated Bilirubin 0.1 mg/dL (0.0-1.1) 02/23/17 07:50 AST 21 IU/L (14-46) 02/23/17 07:50 ALT 26 IU/L (9-52) 02/23/17 07:50 Lactate Dehydrogenase 484 IU/L (313-618) 02/23/17 07:50 - SVE Dilation (cm): 3 Effacement (%): 80 Station: -1 Membranes: AROM, Intact Amniotic Fluid Color: Clear - Contraction Pattern Assessment Current Contraction Pattern: Regular (q 2-3 on pit 8 mu/min), Irregular - FHR Assessment Pan FHR (bpm): 130 FHR Pattern Variability: Moderate FHR Category: 2 (deep variables after FSE placed, IUPC placed for amnioinfusion) Oxytocin Orders Assessment - Pre-Induction/Augmentation Assessment Gestational Age: 37 week(s) and 2 day(s) ICD10 Worksheet Patient Problems: Problems Problem Status Onset Preeclampsia Acute Right ankle sprain Acute
--- NOTE | 2017-02-23 16:13 | PREANESOB ---
Obstetric Pre-Anesthesia Info - General Info Proposed Procedure: Labor and delivery. : 3 Para: 1 PRAKASH: 03/14/17 Gestational Age: 37 week(s) and 2 day(s) - Info Status: Full Term Monitors: External FHR Baseline (bpm): 130 FHR Pattern: Reassuring - Labor Status Cervical Dilation per last OB SVE: 3 Station per last OB SVE: -1 Amniotic Fluid Color: Clear Pitocin: In Use PIH: Mild Magnesium Sulfate in Use: No Indications for Labor Analgesia: Induction of Labor, Pain Control Labor Epidural: Proposed Anesthesia ROS: Prior general anesthesia and unsuccessful labor epidural. Allergies/Adverse Reactions: Allergy/AdvReac Type Severity Reaction Status Date / Time prochlorperazine Allergy Verified 02/05/17 13:54 [From Compazine] promethazine [From Phenergan] Allergy Verified 02/05/17 13:54 Home Medications: Medication Instructions Recorded Synthroid 250 mcg PO DAILY 12/21/16 Vit27&Calcium/Iron/FA 1 each PO DAILY 02/05/17 [] Hydrocodone/APAP 5/325 [[place] 2 tab PO Q4HRS PRN #20 tab 02/21/17 5/325 (*)] Visit Medications: Generic Name Dose Route Start Last Admin Trade Name Freq PRN Reason Stop Dose Admin Lactated Ringer's 1,000 mls @ 0 mls/hr 02/23/17 07:05 Lr IV 02/24/17 07:04 PRN PRN SEE PROTOCOL CONDITIONS Protocol Per Protocol Oxytocin 20 unit/ Lactated 1,002 mls @ 150 mls/hr 02/23/17 07:05 Ringer's IV PRN PRN Post- bleeding Oxytocin 30 unit/ Sodium 503 mls @ 0 mls/hr 02/23/17 07:15 02/23/17 09:54 Chloride IV 08/22/17 07:14 503 mls CONT YONATHAN Administration Per Protocol Ibuprofen 600 mg 02/23/17 07:05 Motrin PO 08/22/17 07:04 Q6HRS PRN post , inflammation Magnesium Sulfate 454 gm 02/23/17 07:05 Epsom Salt TP 08/22/17 07:04 Q1H PRN perineal discomfort Alton Oil 118 ml 02/23/17 07:05 Sweet Oil MISC 06/10/18 07:04 ONCE PRN perineal massage Terbutaline Sulfate 0.25 mg 02/23/17 07:05 Brethine IV 08/22/17 07:04 ONCE PRN Tachysystole Discontinued Medications Generic Name Dose Route Start Last Admin Trade Name Jeff PRN Reason Stop Dose Admin Ammonia (Aromatic Spirit) Confirm 02/23/17 09:08 Ammonia Aromatic Administered 02/23/17 09:09 Dose 1 each IH .STK-MED ONE Bupivacaine HCl Confirm 02/23/17 13:35 Sensorcaine 0.25% Sdv Administered 02/23/17 13:36 Dose 30 ml .ROUTE .STK-MED ONE Fentanyl Confirm 02/23/17 13:35 Sublimaze Administered 02/23/17 13:36 Dose 100 mcg .ROUTE .STK-MED ONE Fentanyl Confirm 02/23/17 15:46 Sublimaze Administered 02/23/17 15:47 Dose 100 mcg .ROUTE .STK-MED ONE Fentanyl/Bupivacaine HCl Confirm 02/23/17 13:35 Fentanyl/Bupivacaine/Ns 2 Mcg/Ml 0.1% (Premix Administered 02/23/17 13:36 Dose 100 ml EP .STK-MED ONE Lidocaine HCl Confirm 02/23/17 09:07 Lidocaine Hcl 1% Administered 02/23/17 09:08 Dose 300 mg .ROUTE .STK-MED ONE Misoprostol Confirm 02/23/17 09:08 Cytotec Administered 02/23/17 09:09 Dose 1,000 mcg .ROUTE .STK-MED ONE Alton Oil Confirm 02/23/17 09:08 Sweet Oil Administered 02/23/17 09:09 Dose 118 ml .ROUTE .STK-MED ONE Oxytocin Confirm 02/23/17 09:08 Pitocin Administered 02/23/17 09:09 Dose 40 unit .ROUTE .STK-MED ONE Phenylephrine HCl Confirm 02/23/17 13:35 Neosynephrine Administered 02/23/17 13:36 Dose 1,000 mcg .ROUTE .STK-MED ONE Terbutaline Sulfate Confirm 02/23/17 09:08 Brethine Administered 02/23/17 09:09 Dose 1 mg .ROUTE .STK-MED ONE - Anesthesia History Response to Local Anesthetics: Normal Anesthesia & Operative History: Prob w/Prior Anesthesia Family Anesthesia History: Negative - Social History Substance Use/Abuse: Denies - Vital Signs Blood Pressure: 125/81 Heart Rate: 86 Respiratory Rate: 17 Height/Weight (Nursing): Height 172.72 cm Weight 105.687 kg - Focused Exam Neck exam: FROM Mallampati Score: Class 1 Mouth exam: normal dental/mouth exam Pulmonary: no respiratory distress Cardiovascular: regular rate and rhythym Labs: 02/23/17 07:50 02/23/17 07:50 Patient ABO/Rh A POSITIVE 02/23/17 07:50 Uric Acid 5.1 mg/dL (2.5-6.8) 02/23/17 07:50 Total Bilirubin 0.2 mg/dL (0.1-1.4) 02/23/17 07:50 Conjugated Bilirubin 0.1 mg/dL (0.0-0.5) 02/23/17 07:50 Unconjugated Bilirubin 0.1 mg/dL (0.0-1.1) 02/23/17 07:50 AST 21 IU/L (14-46) 02/23/17 07:50 ALT 26 IU/L (9-52) 02/23/17 07:50 Lactate Dehydrogenase 484 IU/L (313-618) 02/23/17 07:50 - Plan Consent Signed and on Chart: Yes Patient/Guardian Understands and Agrees to Plan: Yes Urgent/Emergent Case: Sam velasquez completed preop but documented later for safe timely pt care
--- NOTE | 2017-02-23 16:18 | OBPROG ---
Labor Progress Note Assessment/Plan: Assessment: IUP at 37+ wks, mild preeclampsia, induction narc use for HAs and sprained ankle recurrent lates, improved after amnioinfusion Plan: FSE and IUPC placed, rapid progress and now complete 02/23/17 14:42 02/23/17 16:15 Subjective/Intrapartum Course: 02/23/17 07:50 Denies pain at this time. Doing well . Continues to have pain with her right leg after a recent fall 02/23/17 14:44 Pt more comf with SAHRON 02/23/17 16:16 pt feeling pressure and pushing now, very anxious with concern for FHT decels Objective: 02/23/17 07:50 02/23/17 07:50 Patient ABO/Rh A POSITIVE 02/23/17 07:50 Uric Acid 5.1 mg/dL (2.5-6.8) 02/23/17 07:50 Total Bilirubin 0.2 mg/dL (0.1-1.4) 02/23/17 07:50 Conjugated Bilirubin 0.1 mg/dL (0.0-0.5) 02/23/17 07:50 Unconjugated Bilirubin 0.1 mg/dL (0.0-1.1) 02/23/17 07:50 AST 21 IU/L (14-46) 02/23/17 07:50 ALT 26 IU/L (9-52) 02/23/17 07:50 Lactate Dehydrogenase 484 IU/L (313-618) 02/23/17 07:50 - SVE Dilation (cm): 10 Effacement (%): 100 Station: +2 Membranes: AROM, Intact Amniotic Fluid Color: Clear Dilation Complete Date: 02/23/17 Dilation Complete Time: 16:00 - Contraction Pattern Assessment Current Contraction Pattern: Regular (adeq ctxns by MVUs with IUPC, been off pit for more than 1 hr), Irregular - FHR Assessment Pan FHR (bpm): 130 FHR Pattern Variability: Moderate FHR Category: 2 (severe variables with ctxns with pushing) - Procedures Non-surgical Procedures: FSE, IUPC Oxytocin Orders Assessment - Pre-Induction/Augmentation Assessment Gestational Age: 37 week(s) and 2 day(s) ICD10 Worksheet Patient Problems: Problems Problem Status Onset Encounter for induction of labor Acute Preeclampsia Acute Right ankle sprain Acute - ICD10 Problem Qualifiers (1) Encounter for induction of labor
[2017-02-23] MEDS ORDERED: ONDANSETRON 4 MG/2 ML VIAL IVP PRN (16:21)
[2017-02-23] MEDS ORDERED: PHENYLEPHRINE HCL 100 MCG/ML SYR IVP PRN (16:21)
--- NOTE | 2017-02-23 16:21 | POSTANESTH ---
Post Anesthetic Evaluation Cardiovascular Status: Normal, Stable, Similar to Pre-Op Cond Respiratory Status: Normal, Stable, Similar to Pre-op Cond. Level of Consciousness/Mental Status: Can Participate in Eval, Alert and Oriented Pain Control: Adequate, Prn Tx Ordered Nausea/Vomiting Control: Adequate, Prn Tx Ordered Complications Possibly Related to Anesthesia: None Noted
[2017-02-23] MEDS ORDERED: LR 500 ML IV SCH (16:30)
[2017-02-23] MEDS ORDERED: fentaNYL 2MCG/ML/BUP 0.1% RTU 100 ML EP SCH (16:30)
--- NOTE | 2017-02-23 17:18 | OBDEL ---
Info Type: Vaginal Presentation at Delivery: Vertex L&D Analgesia/Anesthesia Type: Epidural GBS+: No Intrapartum Medications: Generic Name Dose Route Start Last Admin Trade Name Jeff PRN Reason Stop Dose Admin Oxytocin 30 unit/ Sodium 503 mls @ 0 mls/hr 02/23/17 07:15 02/23/17 09:54 Chloride IV 08/22/17 07:14 503 mls CONT YONATHAN Administration Per Protocol - Hospital Course Intrapartum: 02/23/17 07:50 Denies pain at this time. Doing well . Continues to have pain with her right leg after a recent fall 02/23/17 14:44 Pt more comf with SHARON 02/23/17 16:16 pt feeling pressure and pushing now, very anxious with concern for FHT decels Indications for Delivery: Preeclampsia Mild Vaginal Delivery - Delivery Provider Delivery Physician/CNM: Bambi Arriaga - Labor and Delivery Onset of Contractions Date: 02/23/17 Onset of Contractions Time: 13:30 Onset of Contractions Type: Induced Rupture of Membranes Date: 02/23/17 Rupture of Membranes Time: 13:30 Rupture of Membranes Type: Spontaneous Amniotic Fluid Color: Clear Dilation Complete Date: 02/23/17 Dilation Complete Time: 15:58 Placenta Delivery Date: 02/23/17 Placenta Delivery Time: 16:51 Total Hours of Labor: 3 Non-surgical Procedures: FSE, IUPC Laceration: Other (Specify) (none) Vaginal Sponge Count Correct: Yes Vaginal Needle Count Correct: Yes Vaginal Sweep Performed: Yes EBL: 350 Delivery Events: None (arm cord, severe variables with pushing and rapid dilation) - Medications Labor Augmentation/Induction Methods Used: Pitocin Labor Augmentation/Induction Indication: Medical (mild preeclampsia) Data PRAKASH: 03/14/17 Gestational Age: 37 week(s) and 2 day(s) Pan Delivery Date: 02/23/17 Delivery Time: 16:47 Sex of Infant: Male Score (1 Min): 8 Score (5 Min): 9 ICD10 Worksheet Patient Problems: Problems Problem Status Onset (spontaneous vaginal delivery) Acute Encounter for induction of labor Acute Right ankle sprain Acute Preeclampsia Acute - ICD10 Problem Qualifiers (1) Encounter for induction of labor
[2017-02-23] MEDS: IBUPROFEN 600 MG TAB PO PRN (20:40)
[2017-02-23] MEDS: HYDROCODONE/APAP 5/325 TAB PO PRN (20:43)
--- NOTE | 2017-02-23 23:49 | GHP ---
[f rep st] PREOP HISTORY AND PHYSICAL DATE OF ADMISSION: 02/23/2017 HISTORY: Upon admission, the patient is a 36-year-old, G3, P1, A1 at 37+ weeks gestation, with an estimated due date of 03/14/2017, who presents for induction due to mild preeclampsia. Upon admission, the patient is having good movement, irregular mild contractions. She had some mild bloody show this morning. Patient had an exam at the office on 02/22, at which point she had a Copeland catheter placed. However , immediately thereafter had increased vaginal bleeding and the Copeland catheter was removed, but then the cervix was found to be 3-4 cm dilated. The patient was discharged home to return for induction this morning. She had mild contractions through the night, but generally was able to sleep. Bag of water intact and good movement. The patient has had some labile blood pressures noted in the . The patient has been observed several times on labor and delivery due to issues with severe headaches and with labile blood pressures that have gone into the preeclamptic range, as well as proteinuria that was identified. The patient has been declared a mild preeclamptic. As the patient has had a custodial history of migraines, the headaches have not put her into severe criteria for the preeclampsia. The patient has PIH labs drawn on admission and these are all normal. CARE: The patient started care with [facility] at 23 weeks' gestation after moving to [place] from [place]. The patient had some brownish bleeding at 23 weeks and was seen for evaluation and had a level 2 ultrasound set up. The 1st ultrasound with MFM revealed estimated weight of 81st percentile with an anterior placenta. The patient has had followup ultrasounds and they have been reassuring. Again, the patient has had the chronic migraines for which she has been presenting to our office in labor and delivery on multiple occasions for narcotics. The patient has periodically used [place], but she has also been seen in the emergency room and been given Flexeril and tramadol. On 1 admission to the emergency room the patient had an MRI performed which showed no acute process. The patient was also evaluated on labor and delivery for contractions, also at the same time as headaches , and the patient most recently has had a fall down a couple of stairs and has sprained her right ankle. She is wearing a boot upon presentation and has an Ivan wrap on her right ankle. Denies any headache on admission. LABS: Maternal blood type A positive with negative antibody screen. RPR nonreactive. Rubella immune. Hepatitis B surface antigen nonreactive. HIV negative. Cystic fibrosis negative. Urinalysis and culture negative. Gonorrhea and chlamydia negative. Patient has a history of hypothyroidism for which she was on a significant dose prior to presenting to us. The patient was on 350 mcg daily. After seeing the MFM on the 1st visit, she was advised to decrease down to 275, but lab values indicated she needed to continue to be decreased. She was dropped to 250 mcg at 30 weeks' gestation. Lab tests have been okay on this level since then. GBS culture is negative. Weekly PIH labs have been negative. PAST MEDICAL HISTORY: Thyroid dysfunction diagnosed at the age of 25. History of vitiligo diagnosed at 30. History of migraines with aura. PAST SURGICAL HISTORY: Eye surgery and odontectomy. PAST HISTORY: In May 1999, a viable male delivered at 5 pounds 14 ounces at 37 weeks' gestation, after a 13-hour labor with an epidural. The patient had a rapid progress of the labor at the end and pushed only 15 minutes. In December 2015, the patient had a SAB at 6 weeks' gestation. ALLERGIES: The patient is allergic to Compazine, giving muscle tension; Phenergan, giving muscle tension. CURRENT MEDICATIONS: Synthroid 250 mcg a day, vitamins, periodic [place] and Flexeril for migraines. SOCIAL HISTORY: The patient is , lives with her . The patient is a nonsmoker. No alcohol or drug use. PHYSICAL EXAMINATION: GENERAL: Upon admission, the patient is a well-developed , well-nourished, obese white female, in no physical discomfort but describing some contractions. VITAL SIGNS: Patient is afebrile upon admission with normal vital signs. Please see nursing documentation for full details. LUNGS: Clear to auscultation. CARDIOVASCULAR: Regular rate and rhythm. monitoring reveals category 1 tracing in the 130s, with good variability and accelerations. There are no decelerations noted. Patient having infrequent mild contractions spontaneously and these increased with Pitocin. PELVIC: Cervical exam reveals the cervix is a loose 3 cm at 80% effaced, at -2 station. EXTREMITIES: 2+ edema. Normal DTRs. Her right foot is in an Ivan wrap at the ankle. LABS: PIH labs drawn on admission and these were all in the normal range. Admission hematocrit of 31.5%. ASSESSMENT: Intrauterine at 37+ weeks' gestation, mild preeclampsia with PIH level labs normal. Normal blood pressure today. Obesity, hypothyroidism, on high level of Synthroid, for induction by maternal- medicine recommendations. History of migraines with aura. PLAN: Will continue to increase Pitocin to produce adequate labor. Will watch blood pressures to make sure they maintained well during the labor process. /[id number]/MODL MTDD
[2017-02-24] MEDS: HYDROCODONE/APAP 5/325 TAB PO PRN ×5 (00:37→21:03)
[2017-02-24] MEDS: IBUPROFEN 600 MG TAB PO PRN ×4 (02:48→22:27)
[2017-02-24] MEDS: LEVOTHYROXINE 125 MCG TAB PO SCH (06:00)
[2017-02-24 06:20] LABS: % IMMATURE GRANULYOCYTES 0.6 % (0.0-1.1); ABSOLUTE IMMATURE GRANULOCYTES 0.09 10^3/uL (0.00-0.10); ADD DIFF? NO; ADD MORPH? NO; ADD SCAN? NO; ATYPICAL LYMPHOCYTE FLAG 0 (0-99); FRAGMENT RBC FLAG 20 (0-99); HEMATOCRIT 29.9 % (38.0-47.0); HEMOGLOBIN 10.1 g/dL (12.6-16.3); LEFT SHIFT FLG 10 (0-99); LIPEMIA HEMOLYSIS FLAG 90 (0-99); MEAN CELL HEMOGLOBIN 26.3 pg (27.9-34.1); MEAN CELL HEMOGLOBIN CONCENTR. 33.8 g/dL (32.4-36.7); MEAN CELL VOLUME 77.9 fL (81.5-99.8); MEAN PLATELET VOLUME 10.7 fL (8.7-11.7); PLATELET CLUMPS FLAG 10 (0-99); PLATELET COUNT 309 10^3/uL (150-400); RED BLOOD CELL COUNT 3.84 10^6/uL (4.18-5.33); RED CELL DISTRIBUTION WIDTH 15.9 % (11.5-15.2)
[2017-02-24 06:49] LABS: ALANINE AMINOTRANSFERASE 20 IU/L (9-52); ASPARTATE AMINOTRANSFERASE 19 IU/L (14-46); CREATININE 0.6 mg/dL (0.6-1.0); GLOMERULAR FILTRATION RATE > 60; LACTATE DEHYDROGENASE 545 IU/L (313-618); URIC ACID 4.6 mg/dL (2.5-6.8)
[2017-02-24 07:03] LABS: BILIRUBIN,TOTAL < 0.1 mg/dL (0.1-1.4); BILIRUBIN-CONJUGATED 0.1 mg/dL (0.0-0.5)
[2017-02-24] MEDS: DOCUSATE SODIUM 100 MG CAP PO PRN ×2 (09:26→21:03)
--- NOTE | 2017-02-24 19:32 | OBPP ---
Progress Note Assessment/Plan: Assessment: ppd# 1 s/p chronic headaches breast feeding mild preeclampsia - stable labs and blood pressures Plan: routine post care k pad for back pain 02/24/17 19:32 Subjective/ Course: 02/24/17 19:31 patient is doing well. pain is well controlled except back pain. would like a heating pad. normal lochia. denies headache and changes in vision. ambulating. Objective: 02/24/17 06:00 02/24/17 06:00 Patient ABO/Rh A POSITIVE 02/23/17 07:50 Uric Acid 4.6 mg/dL (2.5-6.8) 02/24/17 06:00 Total Bilirubin < 0.1 mg/dL (0.1-1.4) L D 02/24/17 06:00 Conjugated Bilirubin 0.1 mg/dL (0.0-0.5) 02/24/17 06:00 Unconjugated Bilirubin 0.0 mg/dL (0.0-1.1) 02/24/17 06:00 AST 19 IU/L (14-46) 02/24/17 06:00 ALT 20 IU/L (9-52) 02/24/17 06:00 Lactate Dehydrogenase 545 IU/L (313-618) 02/24/17 06:00 Temp Pulse Resp BP Pulse Ox 36.6 C 78 17 122/66 H 93 02/24/17 08:00 02/24/17 08:00 02/24/17 08:00 02/24/17 08:00 02/24/17 08:00 Uterine Position/Fundal Height: Umbilicus -2 Uterine Tone: Firm Physical Exam - Physical Exam Neck: non-tender, full range of motion, supple Respiratory: chest non-tender, lungs clear, normal breath sounds Cardiac/Chest: normal peripheral pulses, regular rate, rhythm Abdomen: normal bowel sounds, non-tender Extremities: normal range of motion, non-tender, normal inspection, normal capillary refill Skin: normal color, warm/dry Neuro/Psych: no motor/sensory deficits, alert, normal mood/affect, oriented x 3
[2017-02-24 21:40] VITALS: RESP 16
[2017-02-25] MEDS: HYDROCODONE/APAP 5/325 TAB PO PRN ×3 (02:50→13:01)
[2017-02-25] MEDS: IBUPROFEN 600 MG TAB PO PRN (04:54)
[2017-02-25] MEDS: LEVOTHYROXINE 125 MCG TAB PO SCH (04:54)
[2017-02-25 08:43] VITALS: BP 126/84; PULSE 71; TEMP 98.4; O2SAT 94
--- NOTE | 2017-02-25 11:06 | OBGCSDC ---
General Delivery Information - General Info : 3 Para: 2 Abortions: 0 Type: Vaginal L&D Analgesia/Anesthesia Type: Epidural Admission Date: 02/23/17 Labs: Patient ABO/Rh A POSITIVE 02/23/17 07:50 Hct 29.9 % (38.0-47.0) L 02/24/17 06:00 - Hospital Course Intrapartum: 02/23/17 07:50 Denies pain at this time. Doing well . Continues to have pain with her right leg after a recent fall 02/23/17 14:44 Pt more comf with SHARON 02/23/17 16:16 pt feeling pressure and pushing now, very anxious with concern for FHT decels : 02/24/17 19:31 patient is doing well. pain is well controlled except back pain. would like a heating pad. normal lochia. denies headache and changes in vision. ambulating. 02/25/17 11:06 S) Pt doing well, reports min bleeding. she is ambulating and voiding without difficulty. She is . She desires discharge home today. She does report pain in her back, states it feels bruised from SHARON. O) VSS, afebrile constitutional: WNWF, A&Ox3 HEENT: normocephalic, atraumatic, supple Heart: RRR, No murmur Chest: CTA-B Abdomen: Soft, nontender Uterus: Firm at U-2 Lochia: Minimal rubra Perineum: Intact, healing well Extremities: Trace edema, and negative Song's sign Neuro: Grossly normal A) 36-year-old S/P PPD#2 chronic migraines P) Discharge home today Continue Pelvic rest x6wks Discussed danger signs (infection, preeclampsia, depression, heavy bleeding, etc ) heating pad/ibuprofen RTO in 4/6 weeks Vaginal - Delivery Provider Delivery Physician/CNM: Bambi Arriaga - Diagnosis Labor: Induced Rupture of Membranes Type: Spontaneous Amniotic Fluid Color: Clear Laceration: Other (Specify) (none) Delivery Events: None (arm cord, severe variables with pushing and rapid dilation) - Procedures Non-surgical Procedures: FSE, IUPC - Delivery Non-surgical Procedures: FSE, IUPC EBL: 350 Data PRAKASH: 03/14/17 Gestational Age: 37 week(s) and 4 day(s) Pan Delivery Date: 02/23/17 Delivery Time: 16:47 Sex of Infant: Male Score (1 Min): 8 Score (5 Min): 9 Discharge Information - Discharge Information Prescriptions: Ibuprofen [Motrin (*)] 600 mg PO Q6HRS PRN #30 tab PRN Reason: post , inflammation Condition: Good Instruction/Follow Up: Four Weeks, Six Weeks
== END 2017-02-25 13:30 | disposition home or self-care (01) | DRG 775 ==
LOC: FLD 06:22 → FOB 20:31
PROVIDERS: ADMIT Obstetrics & Gynecology; ATTEND Obstetrics & Gynecology
PROC: 3E033VJ Introduction of Other Hormone into Peripheral Vein, Percutaneous Approach (ICD-10-PCS; principal; 2017-02-23)
PROC: 10907ZC Drainage of Amniotic Fluid, Therapeutic from Products of Conception, Via Natural or Artificial Opening (ICD-10-PCS; principal; 2017-02-23)
PROC: 10H073Z Insertion of Monitoring Electrode into Products of Conception, Via Natural or Artificial Opening (ICD-10-PCS; principal; 2017-02-23)
PROC: 3E0E7GC Introduction of Other Therapeutic Substance into Products of Conception, Via Natural or Artificial Opening (ICD-10-PCS; principal; 2017-02-23)
PROC: 10E0XZZ Delivery of Products of Conception, External Approach (ICD-10-PCS; principal; 2017-02-23)
DX: O14.04 Mild to moderate pre-eclampsia, complicating childbirth (principal); O76 Abnormality in fetal heart rate and rhythm complicating labor and delivery; O69.82X0 Labor and delivery complicated by other cord entanglement, without compression, not applicable or unspecified; O99.354 Diseases of the nervous system complicating childbirth; G43.909 Migraine, unspecified, not intractable, without status migrainosus; O99.214 Obesity complicating childbirth; E66.9 Obesity, unspecified; O99.280 Endocrine, nutritional and metabolic diseases complicating pregnancy, unspecified trimester; E03.9 Hypothyroidism, unspecified; O99.713 Diseases of the skin and subcutaneous tissue complicating pregnancy, third trimester; L80 Vitiligo; Z37.0 Single live birth; Z3A.37 37 weeks gestation of pregnancy
CPT/HCPCS: J2370; J3010; J3105

== ENCOUNTER 2017-05-13 11:39 | Emergency (ER) | payer BC, OTHER ==
[2017-05-13 11:44] VITALS: RESP 18
[2017-05-13] MEDS ORDERED: METOCLOPRAMIDE 10 MG/2 ML VIAL IVP ONE (12:38)
[2017-05-13] MEDS ORDERED: KETOROLAC 15 MG/1 ML SDV IVP/IM ONE (12:38)
[2017-05-13] MEDS ORDERED: NS 1,000 ML IV ONE (12:38)
[2017-05-13] MEDS ORDERED: LORazepam 2 MG/ML INJ IVP ONE (12:40)
--- NOTE | 2017-05-13 12:43 | EDPHY ---
H & P Stated Complaint: garber x 5 days/hx migraine/tension garber/ Time Seen by Provider: 05/13/17 12:29 HPI/ROS: CHIEF COMPLAINT: "Migraine headache" x5 days HISTORY OF PRESENT ILLNESS: 36-year-old female history of chronic migraine headache, currently breast-feeding child, complaining of 5 days of her usual migraine headache described as the bifrontal and bioccipital region. Atraumatic. Non thunderclap. No nausea or vomiting. Positive photophobia. No trauma. No fall. REVIEW OF SYSTEMS: A ten point review of systems was performed and is negative with the exception of the items mentioned in the HPI PAST MEDICAL & SURGICAL HISTORY: Chronic migraine headache. 2 months. SOCIAL HISTORY: Nonsmoker PHYSICAL EXAM (Prior to examination, patient consented to physical exam, hands were washed and my usual and customary physical exam procedures followed) 1) GENERAL: [Well-developed, well-nourished, alert and oriented. Appears uncomfortable , sitting in a darkened room 2) HEAD: Normocephalic, atraumatic 3) HEENT: Pupils equal, round, reactive to light bilaterally. Sclera anicteric. 4) NECK: Full range of motion, no meningeal signs. 5) LUNGS: Clear auscultation bilaterally, no wheezes, no rhonchi, no retractions. 6) HEART: Regular rate and rhythm, no murmur, no heave, no gallop. 7) ABDOMEN: No guarding, no rebound, no focal tenderness, 8) MUSCULOSKELETAL: Moving all extremities, no focal areas of tenderness, no obvious trauma. No peripheral edema or discoloration. 9) BACK: No CVA tenderness, no midline vertebral tenderness, no fluctuance, no step-off, no obvious trauma, no visual or palpable abnormality. 10) SKIN: No rash, no petechiae. 11) Psychiatric: Patient is oriented X 3, there is no agitation. 12) NEURO: Awake, alert, and oriented to person, place and time. Answers questions appropriately. There were no obvious focal neurologic abnormalities. No cerebellar dysfunction. Cranial nerves 2 through to 12 intact. Normal steady gait. Upper and lower extremities bilaterally with strength 5 / 5, reflexes 2+. DIFFERENTIAL DIAGNOSIS: In no particular order, including but not limited to subarachnoid hemorrhage, migraine headache, tension headache and infectious causes such as meningitis, pharyngitis and sinusitis. The patient understands that this diagnosis is provisional and can never be 100% accurate. Usual and customary warnings were given concerning the clinical impression and all the patient's questions were answered. The patient was instructed to return to the emergency department should her symptoms worsen or return, or develop any new symptoms, otherwise to followup as directed in discharge instructions. This is a partial list of diagnoses considered. These considerations are based on history, physical exam, past history and reassessment. - Personal History LMP (Females 10-55): IUD In Place Current Tetanus/Diphtheria Vaccine: Yes - Medical/Surgical History Hx Asthma: No Hx Chronic Respiratory Disease: No Hx Diabetes: No Hx Cardiac Disease: No Hx Renal Disease: No Hx Cirrhosis: No Hx Alcoholism: No Hx HIV/AIDS: No Hx Splenectomy or Spleen Trauma: No Other PMH: pmh: hypothyroid, Hx GARBER, back pain migraine. psh: eye, dental - Social History Smoking Status: Never smoked Constitutional: Initial Vital Signs Temperature (C) 36.9 C 05/13/17 11:41 Heart Rate 93 05/13/17 11:41 Respiratory Rate 18 05/13/17 11:41 Blood Pressure 150/116 H 05/13/17 11:41 O2 Sat (%) 98 05/13/17 11:41 O2 Delivery Mode Room Air Allergies/Adverse Reactions: prochlorperazine [From Compazine] Allergy (Verified 05/13/17 11:41) promethazine [From Phenergan] Allergy (Verified 05/13/17 11:41) Home Medications: Medication Instructions Recorded Synthroid 250 mcg PO DAILY 12/21/16 Hydrocodone/APAP 5/325 [[place] 1 tab PO Q6 PRN #10 tab 05/13/17 5/325 (RX)] Medical Decision Making ED Course/Re-evaluation: 12:40 p.m.: Old medical records reviewed including December 2016 the ER visit which included MR venogram. At this time, the presence of a nonfocal neurologic exam with the patient describes as her usual exacerbation of chronic migraine, will proceed with analgesia. She is currently breast feeding. Care of patient under supervision of secondary supervising physician Dr Villaseñor . 1:23 p.m.: Re-evaluation. Her pain is moderated but continues. I have offered further analgesia however due to time constraints she states that she needs to leave. States that she typically will receive analgesia with oral Marcellus. Will plan on sending her home with a prescription for Marcellus. Usual and customary headache precautions instructions provided. - Data Points Medications Given: Discontinued Medications Sodium Chloride (Ns) 1,000 mls @ 3,000 mls/hr IV EDNOW ONE Stop: 05/13/17 12:57 Last Admin: 05/13/17 12:54 Dose: 1,000 mls Ketorolac Tromethamine (Toradol) 15 mg IVP/IM EDNOW ONE Stop: 05/13/17 12:39 Last Admin: 05/13/17 12:56 Dose: 15 mg Lorazepam (Ativan Injection) 1 mg IVP EDNOW ONE Stop: 05/13/17 12:41 Last Admin: 05/13/17 12:59 Dose: 1 mg Metoclopramide HCl (Reglan Injection) 10 mg IVP EDNOW ONE Stop: 05/13/17 12:39 Last Admin: 05/13/17 12:54 Dose: 10 mg Departure - Departure Disposition: Home, Routine, Self-Care Clinical Impression: Migraine headache Qualifiers: Migraine type: unspecified Status migrainosus presence: without status migrainosus Intractability: intractable Qualified Code(s): G43.919 - Migraine, unspecified, intractable, without status migrainosus Condition: Fair Instructions: Migraine Headache (ED) Additional Instructions: RETURN TO THE ED IMMEDIATELY IF YOUR HEADACHE WORSENS, IF YOU DEVELOP A FEVER, NECK PAIN OR NECK STIFFNESS, OR IF YOU BECOME CONFUSED OR ABNORMALLY DROWSY. Referrals: TERI RUELAS [Primary Care Provider] - 2-3 days, call for appt. Prescriptions: Hydrocodone/APAP 5/325 [Marcellus 5/325 (RX)] 1 tab PO Q6 PRN #10 tab PRN Reason: Pain, Severe
[2017-05-13 14:01] VITALS: BP 157/115; PULSE 98; TEMP 98.2; O2SAT 96
== END 2017-05-13 14:01 | disposition home or self-care (01) ==
DX: G43.919 Migraine, unspecified, intractable, without status migrainosus (principal)
CPT/HCPCS: 96374; J1885; J2060; J2765

== ENCOUNTER 2017-05-14 12:20 | Emergency (ER) | payer OTHER, BC ==
[2017-05-14 12:34] VITALS: TEMP 98.4
[2017-05-14] MEDS ORDERED: NS 1,000 ML IV ONE (14:31)
[2017-05-14] MEDS ORDERED: HYDROmorphONE/DILAUDID 1 MG/ML INJ IVP ONE ×2 (14:31→16:33)
[2017-05-14] MEDS ORDERED: ONDANSETRON 4 MG/2 ML VIAL IVP ONE ×2 (14:31→17:22)
[2017-05-14] MEDS ORDERED: DIAZEPAM 5 MG/ML 1 ML SYR IVP ONE (14:37)
--- NOTE | 2017-05-14 14:40 | EDPHY ---
H & P Stated Complaint: N/V/D HEADACHE X 1 DAY Time Seen by Provider: 05/14/17 14:24 HPI/ROS: CHIEF COMPLAINT: Headache, breast-feeding HISTORY OF PRESENT ILLNESS: Patient is a 36-year-old female with a history of chronic migraine/tension headaches. She is breast-feeding in 2-month-old infant. She states that she has had a headache for 6 days. She was seen here yesterday and had some relief with the hydration and Reglan and Vicodin. She took Vicodin last night and was feeling well until she began to vomit. She vomited several times overnight and clould not keep any further medication down. She is not on a anti emetic. She has not had a fever. No trauma. She states that these headaches are typical for her headaches and that she is most frequently mid told that there due to tension in her neck muscles. She is here requesting hydration and medications. She does not wish to have further imaging or testing. She had an MRI / MRA of her head 6 months ago that was normal. REVIEW OF SYSTEMS: Constitutional: denies: chills, fever, recent illness, recent injury EENTM: denies: blurred vision, double vision, nose congestion Respiratory: denies: cough, shortness of breath Cardiac: denies: chest pain, irregular heart rate, lightheadedness, palpitations Gastrointestinal/Abdominal: denies: abdominal pain, diarrhea, nausea, vomiting, blood streaked stools Genitourinary: denies: dysuria, frequency, hematuria, pain Musculoskeletal: See HPI Skin: denies: lesions, rash, jaundice, bruising Neurological: See HPI denies: numbness, paresthesia, tingling, dizziness, weakness Hematologic/Lymphatic: denies: blood clots, easy bleeding, easy bruising Immunologic/allergic: denies: HIV/AIDS, transplant EXAM: GENERAL: Well-appearing, well-nourished and in no acute distress. HEAD: Atraumatic, normocephalic. EYES: Pupils equal round and reactive to light, extraocular movements intact, sclera anicteric, conjunctiva are normal. No photophobia ENT: TMs normal, nares patent, oropharynx clear without exudates. Moist mucous membranes. NECK: Normal range of motion, supple without lymphadenopathy or JVD. LUNGS: Breath sounds clear to auscultation bilaterally and equal. No wheezes rales or rhonchi. HEART: Regular rate and rhythm without murmurs, rubs or gallops. ABDOMEN: Soft, nontender, normoactive bowel sounds. No guarding, no rebound. No masses appreciated. BACK: No CVA tenderness, no spinal tenderness, step-offs or deformities EXTREMITIES: Normal range of motion, no pitting or edema. No clubbing or cyanosis. NEUROLOGICAL: Cranial nerves II through XII grossly intact. Normal speech, normal gait. 5/5 strength, normal movement in all extremities, normal sensation PSYCH: Normal mood, normal affect. SKIN: Warm, dry, normal turgor, no visible rashes or lesions. Source: Patient Exam Limitations: No limitations - Personal History LMP (Females 10-55): IUD In Place Current Tetanus/Diphtheria Vaccine: Yes Current Tetanus Diphtheria and Acellular Pertussis (TDAP): Yes - Medical/Surgical History Hx Asthma: No Hx Chronic Respiratory Disease: No Hx Diabetes: No Hx Cardiac Disease: No Hx Renal Disease: No Hx Cirrhosis: No Hx Alcoholism: No Hx HIV/AIDS: No Hx Splenectomy or Spleen Trauma: No Other PMH: pmh: hypothyroid, Hx GARBER, back pain migraine. psh: eye, dental - Social History Smoking Status: Never smoked Alcohol Use: Sober Drug Use: None Constitutional: Initial Vital Signs Temperature (C) 36.9 C 05/14/17 12:32 Heart Rate 131 H 05/14/17 12:32 Respiratory Rate 16 05/14/17 12:32 Blood Pressure 133/107 H 05/14/17 12:32 O2 Sat (%) 96 05/14/17 12:32 O2 Delivery Mode Room Air Allergies/Adverse Reactions: prochlorperazine [From Compazine] Allergy (Verified 05/14/17 12:30) promethazine [From Phenergan] Allergy (Verified 05/14/17 12:30) Home Medications: Medication Instructions Recorded Synthroid 250 mcg PO DAILY 12/21/16 Hydrocodone/APAP 5/325 [[place] 1 tab PO Q6 PRN #10 tab 05/13/17 5/325 (RX)] Ondansetron Odt [Zofran Odt 4 mg 4 mg PO Q4 PRN #20 tab 05/14/17 (RX)] oxyCODONE/APAP 5/325 [Percocet 1 - 2 tab PO Q4H PRN #10 tab 05/14/17325 (*)] Medical Decision Making ED Course/Re-evaluation: 4:30 p.m. the patient is going to pump and dump and is requesting more pain medication. She was feeling better but headache starting to return. 6:10 p.m. the patient is feeling much better. She is asking for more muscle relaxant. She states this seems to work best. She is going to pump and dump. She is asking for Zofran to take home would like to go home where she can rest better. 6:30 p.m. the patient called me back into the room and asked if she could have something stronger than the Vicodin to take home as well. I will give her a take-home pack a prescription for Percocet Differential Diagnosis: Partial list of the Differential diagnosis considered include but were not limited to; migraine, tension headache, muscle spasm and although unlikely based on the history and physical exam, I also considered intracranial hemorrhage, seizure, tumor, aneurysm, dissection, infection. I discussed these differential diagnoses and the plan with the patient as well as the usual and expected course. The patient understands that the diagnosis is provisional and that in medicine we are not always correct and that further workup is often warranted. Usual and customary warnings were given. All of the patient's questions were answered. The patient was instructed to return to the emergency department should the symptoms at all worsen or return, otherwise to followup with the physician as we discussed. - Data Points Medications Given: Discontinued Medications Diazepam (Valium) 2.5 mg IVP EDNOW ONE Stop: 05/14/17 14:38 Last Admin: 05/14/17 14:56 Dose: 2.5 mg Diazepam (Valium) 2.5 mg IVP EDNOW ONE Stop: 05/14/17 18:18 Last Admin: 05/14/17 18:22 Dose: 2.5 mg Hydromorphone HCl (Dilaudid) 1 mg IVP EDNOW ONE Stop: 05/14/17 15:16 Last Admin: 05/14/17 16:53 Dose: 1 mg Hydromorphone HCl (Dilaudid) 1 mg IVP EDNOW ONE Stop: 05/14/17 16:34 Last Admin: 05/14/17 17:51 Dose: Not Given Sodium Chloride (Ns) 1,000 mls @ 0 mls/hr IV ONCE ONE; Wide Open PRN Reason: Protocol Stop: 05/14/17 14:32 Last Admin: 05/14/17 14:56 Dose: 1,000 mls Ondansetron HCl (Zofran) 8 mg IVP EDNOW ONE Stop: 05/14/17 14:32 Last Admin: 05/14/17 14:57 Dose: 8 mg Ondansetron HCl (Zofran) 4 mg IVP EDNOW ONE Stop: 05/14/17 17:23 Last Admin: 05/14/17 17:33 Dose: 4 mg Oxycodone/Acetaminophen (Percocet 5/325mg Prepack#4) 1 btl TAKEHOME EDNOW ONE Stop: 05/14/17 18:38 Last Admin: 05/14/17 18:47 Dose: 1 btl Departure - Departure Disposition: Home, Routine, Self-Care Clinical Impression: Headache Qualifiers: Headache type: unspecified Headache chronicity pattern: acute headache Intractability: not intractable Qualified Code(s): R51 - Headache Condition: Fair Instructions: Oxycodone/Acetaminophen (By mouth), Ondansetron (By mouth), Acute Headache (ED) Referrals: TERI RUELAS [Primary Care Provider] - As per Instructions Prescriptions: Ondansetron Odt [Zofran Odt 4 mg (RX)] 4 mg PO Q4 PRN #20 tab PRN Reason: Nausea & Vomiting oxyCODONE/APAP 5/325 [Percocet 5/325 (*)] 1 - 2 tab PO Q4H PRN #10 tab PRN Reason: Pain, Severe
[2017-05-14] MEDS: HYDROmorphONE/DILAUDID 2 MG/ML INJ IVP ONE ×2 (15:11→16:53)
[2017-05-14] MEDS ORDERED: HYDROmorphONE/DILAUDID 2 MG/ML INJ ONE (16:50)
[2017-05-14] MEDS ORDERED: DIAZEPAM 10 MG/2 ML SYR IVP ONE (18:17)
[2017-05-14] MEDS ORDERED: DIAZEPAM 5 MG/ML 1 ML SYR ONE (18:21)
[2017-05-14] MEDS ORDERED: OXYCODONE/APAP 5/325MG PREPACK#4 BTL TAKEHOME ONE (18:37)
[2017-05-14 18:51] VITALS: BP 110/60; PULSE 82; RESP 12; O2SAT 97
== END 2017-05-14 18:52 | disposition home or self-care (01) ==
DX: R51 Headache (principal); E86.9 Volume depletion, unspecified
CPT/HCPCS: 96374; J1170; J2405; J3360